=== PATIENT | female | born 1980 | race Caucasian/White ===

== ENCOUNTER 2018-04-08 17:45 | Emergency (ER) | payer OTHER ==
[2018-04-08] MEDS ORDERED: ACETAMINOPHEN 325 MG TABLET (FP) PO ONE (17:55)
[2018-04-08] MEDS ORDERED: ALBUTEROL SO4 2.5/IPRATROPIUM 0.5 INH SOL 3 ML VIAL.NEB. NEB ONE ×2 (17:55→21:39)
--- NOTE | 2018-04-08 17:56 | PDOC ---
Rapid Medical Evaluation Time Seen by Provider: 04/08/18 17:51 Medical Evaluation: Allergies Allergy/AdvReac Type Severity Reaction Status Date / Time peanut [Peanut] Allergy Severe Swelling Verified 04/08/18 17:51 04/08/18 17:51 Pt. is 22 weeks with shortness of breath, cough, asthma, and cold like symptoms. Denies vaginal bleeding and cramping, but admits to back pain. Did not take tylenol today Exam: Pt in wheel chair, wheezing b/l Orders: Tylenol, duoneb, cxr, cbc, cmp Pt. will proceed to main ED for further evaluation
[2018-04-08 18:02] VITALS: BMI 29.2
[2018-04-08 18:22] LABS: BASO % 0.1 % (0-2.0); EOS % 2.5 % (0-4.5); HEMATOCRIT 33.2 % (32.4-45.2); HEMOGLOBIN 11.5 GM/dL (10.7-15.3); LYMPH % 7.8 % (8-40); MCHC 34.6 g/dl (32.0-36.0); MEAN CELL VOLUME 98.4 fl (80-96); MEAN PLT VOLUME 8.5 fl (7.5-11.1); MONO % 8.8 % (3.8-10.2); NEUT % 80.8 % (42.8-82.8); PLATELET COUNT 253 K/MM3 (134-434); RBC 3.38 M/mm3 (3.60-5.2); WHITE BLOOD COUNT 11.1 K/mm3 (4.0-10.0)
[2018-04-08 18:49] LABS: ALBUMIN 3.3 g/dl (3.4-5.0); ALK PHOS 81 U/L (45-117); ANION GAP 10 (8-16); BILIRUBIN,TOTAL 0.3 mg/dL (0.2-1.0); BLOOD UREA NITROGEN 5 mg/dL (7-18); CALCIUM 8.9 mg/dL (8.5-10.1); CHLORIDE 106 mmol/L (98-107); CO2 21 mmol/L (21-32); CREATININE 0.6 mg/dL (0.55-1.02); GLUCOSE,RANDOM 112 mg/dL (74-106); POTASSIUM 3.8 mmol/L (3.5-5.1); SGOT/AST 16 U/L (15-37); SGPT/ALT 24 U/L (12-78); SODIUM 137 mmol/L (136-145); TOT PROT 7.6 g/dl (6.4-8.2)
--- NOTE | 2018-04-08 21:00 | PDOC ---
History of Present Illness - General Chief Complaint: Shortness of Breath Stated Complaint: 22 WKS PREG ASTHMA Time Seen by Provider: 04/08/18 17:51 History Source: Patient Exam Limitations: No Limitations - History of Present Illness Initial Comments: CHIEF COMPLAINT: 37 y/o , approximately 22 week female c/o 2 days of asthma symptoms with intermittent fever. HISTORY OF PRESENT ILLNESS: The patient has a h/o asthma. She states she has been using her albuterol inhaler for the past 2 days with little relief. She has also had an intermittent fever with T max of 100.3 at home. She has not taken any tylenol for the fever. She denies productive cough, runny nose, n/v/d , abdominal cramping, vaginal bleeding or abnormal vaginal discharge. SUPPORT ASSISTANT is Dr. Cordova Vital signs on arrival are notable for pulse of 125. REVIEW OF SYSTEMS: GENERAL/CONSTITUTIONAL: +fever to 100.3 HEAD, EYES, EARS, NOSE AND THROAT: No change in vision. No ear pain or discharge. No sore throat. CARDIOVASCULAR: +SOB. +pleuritic chest pain. RESPIRATORY: +cough and wheezing. No hemoptysis. GASTROINTESTINAL: No abd pain, nausea, vomiting, diarrhea. GENITOURINARY: No dysuria, frequency, or change in urination. No vaginal bleeding or discharge. MUSCULOSKELETAL: No joint or muscle swelling or pain. No neck or back pain. SKIN: No rash or easy bruising. NEUROLOGIC: No headache, vertigo, loss of consciousness, or loss of sensation. PHYSICAL EXAM: GENERAL: The patient is awake, alert, and fully oriented, in no acute distress. She is well appearing, ambulatory, seems slightly winded when speaking full sentences. HEAD: Normal with no signs of trauma. ENT: Pupils equal, round and reactive to light, extraocular movements intact, sclera anicteric, conjunctiva clear. Neck supple. LUNGS: Faint expiratory wheezing in posterior lung rodriguez. CV: tachycardic with regular rhythm, S1/S2, no MRG. Cap refill < 2 sec. ABDOMEN: Soft, gravid abdomen, non-tender even to deep palpation, no hepatomegaly or splenomegaly, no masses. EXTREMITIES: Normal range of motion, no edema. NEUROLOGICAL: Normal speech, normal gait. CN II-XII grossly intact. SKIN: Warm, dry, normal turgor, no rashes or lesions noted. Past History - Past Medical History Allergies/Adverse Reactions: Allergies Allergy/AdvReac Type Severity Reaction Status Date / Time peanut [Peanut] Allergy Severe Swelling Verified 04/08/18 17:51 Home Medications: Ambulatory Orders Albuterol Sulfate [Proventil HFA Inhaler -] 1 - 2 inh PO PRN 03/31/18 Vitamin Tablet 1 tab PO DAILY 03/31/18 Asthma: Yes COPD: No - Surgical History Cholecystectomy: Yes - Suicide/Smoking/Psychosocial Hx Smoking Status: No Smoking History: Never smoked Have you smoked in the past 12 months: No Number of Cigarettes Smoked Daily: 0 Information on smoking cessation initiated: No Hx Alcohol Use: No Drug/Substance Use Hx: No Substance Use Type: None Hx Substance Use Treatment: No *Physical Exam - Vital Signs Last Vital Signs Temp Pulse Resp BP Pulse Ox 99.1 F 125 H 24 117/46 100 04/08/18 17:52 04/08/18 17:52 04/08/18 17:52 04/08/18 17:52 04/08/18 17:52 ED Treatment Course - LABORATORY CBC & Chemistry Diagram: 04/08/18 18:05 04/08/18 18:05 - ADDITIONAL ORDERS Additional order review: Laboratory Results 04/08/18 18:05 Sodium 137 Potassium 3.8 Chloride 106 Carbon Dioxide 21 Anion Gap 10 BUN 5 L Creatinine 0.6 Creat Clearance w eGFR > 60 Random Glucose 112 H Calcium 8.9 Total Bilirubin 0.3 D AST 16 ALT 24 Alkaline Phosphatase 81 Total Protein 7.6 Albumin 3.3 L 04/08/18 18:05 RBC 3.38 L D MCV 98.4 H MCHC 34.6 RDW 13.0 MPV 8.5 Neutrophils % 80.8 Lymphocytes % 7.8 L D Monocytes % 8.8 Eosinophils % 2.5 D Basophils % 0.1 - Medications Given in the ED: ED Medications Discontinued Medications Generic Name Dose Route Start Last Admin Trade Name Freq PRN Reason Stop Dose Admin Albuterol/Ipratropium 1 amp 04/08/18 17:55 04/08/18 17:57 Duoneb - NEB 04/08/18 17:56 1 amp ONCE ONE Administration Medical Decision Making - Medical Decision Making A/P: 37 y/o afebrile female, approximately 22 weeks with asthma symptoms and intermittent fever x 2 days. Labs, CXR, tylenol and 1 duoneb were ordered in triage. Patient has refused the CXR and tylenol. Will give 2 more duonebs. Will swab for flu. If patient's symptoms improve, will send upstairs to have baby monitored. Symptoms improved CXR - normal Will sent to L&D to be monitored. *DC/Admit/Observation/Transfer Diagnosis at time of Disposition: 23 weeks gestation of - Discharge Dispostion Disposition: HOME Condition at time of disposition: Stable - Referrals Referrals: Lakisha Cordova MD [Staff Physician] - (Keep appointment on April 17, 2018 with Tasha Grissom. Return to l/d if rupture of membranes, contractions, vaginal bleeding or decreased movement.) Angie Casper [Primary Care Provider] - - Patient Instructions - Post Discharge Activity
[2018-04-08] MEDS ORDERED: ACETAMINOPHEN 325 MG TABLET (FP) ONE (21:01)
[2018-04-08] MEDS: ALBUTEROL SO4 2.5/IPRATROPIUM 0.5 INH SOL 3 ML VIAL.NEB. NEB SCH ×2 (21:46→21:58)
[2018-04-09 02:23] VITALS: BP 98/67; PULSE 65; TEMP 97.7
== END 2018-04-09 01:32 | disposition home or self-care (01) ==
LOC: JER 17:45
PROC: 3E0F7GC Introduction of Other Therapeutic Substance into Respiratory Tract, Via Natural or Artificial Opening (ICD-10-PCS; principal; 2018-04-08)
PROC: 3E0F7GC Introduction of Other Therapeutic Substance into Respiratory Tract, Via Natural or Artificial Opening (ICD-10-PCS; 2018-04-08)
DX: O26.892 Other specified pregnancy related conditions, second trimester (principal); J45.909 Unspecified asthma, uncomplicated; Z3A.22 22 weeks gestation of pregnancy
CPT/HCPCS: 36415; 71045-TC-FY; 80053; 85025; 87804; 99282-25; J7620

== ENCOUNTER 2018-08-05 07:10 | Inpatient (IN) | payer BC ==
[2018-08-05 08:48] VITALS: BMI 28.8
[2018-08-05] MEDS ORDERED: DINOPROSTONE 10 MG VAGINAL SUPPOSITORY VG ONE (09:00)
[2018-08-05 09:45] LABS: BASO % 0.4 % (0-2.0); EOS % 0.8 % (0-4.5); HEMATOCRIT 36.6 % (32.4-45.2); HEMOGLOBIN 12.6 GM/dL (10.7-15.3); LYMPH % 15.2 % (8-40); MCH 34.5 pg (25.7-33.7); MCHC 34.4 g/dl (32.0-36.0); MEAN CELL VOLUME 100.1 fl (80-96); MEAN PLT VOLUME 9.9 fl (7.5-11.1); MONO % 9.6 % (3.8-10.2); PLATELET COUNT 185 K/MM3 (134-434); RBC 3.66 M/mm3 (3.60-5.2); RDW 13.6 % (11.6-15.6); WHITE BLOOD COUNT 6.2 K/mm3 (4.0-10.0)
[2018-08-05 09:57] LABS: INR 0.93 (0.83-1.09); PROTHROMBIN TIME (PATIENT) 10.5 SEC (9.7-13.0)
[2018-08-05 10:00] LABS: ACTIVATED PTT 27.3 SECONDS (25.2-36.5)
[2018-08-05 10:20] LABS: ANION GAP 11 MMOL/L (8-16); BLOOD UREA NITROGEN 12 mg/dL (7-18); CALCIUM 9.4 mg/dL (8.5-10.1); CHLORIDE 106 mmol/L (98-107); CO2 23 mmol/L (21-32); CREATININE 0.6 mg/dL (0.55-1.3); GLUCOSE,RANDOM 79 mg/dL (74-106); POTASSIUM 3.9 mmol/L (3.5-5.1); SODIUM 140 mmol/L (136-145)
[2018-08-05] MEDS ORDERED: TUBERCULIN PPD 5 TU/0.1ML SYRINGE (IN PATIENT USE ONLY) ID ONE (12:00)
--- NOTE | 2018-08-05 16:29 | HP ---
Past Medical History - Admission History of Present Illness: 37 y/o P0 with SIUP at 39.6 weeks here for labor induction due to GDMA1. otherwise uncomplicated. Feeling vaginal pressure, no VB/LOF/Ctx. + FM. H/O Asthma. GBS negative. History Source: Patient, Medical Record Limitations to Obtaining History: No Limitations - Past Medical History Pulmonary: Yes: Asthma Gastrointestinal: Yes: Other (Chronic Abd pain). No: GERD Hepatobiliary: Yes: Other (Elevated LFTs) ...: 1 ...Para: 0 ...Term: 0 ...: 0 ...Spon : 0 ...Induced : 0 ...Multiple Gestation: 0 ...LMP: 10/25/17 ... Weeks Gestation by Dates: 40.4 ...EDC by Dates: 08/01/18 ...EDC by Sono: 08/06/18 Infectious Disease: No: HIV, MRSA, STD's Psych: No: Anxiety, Bipolar, Depression - Past Surgical History Past Surgical History: Yes: Cholecystectomy Hx Myomectomy: No Hx Transabdominal Cerclage: No - Smoking History Smoking history: Never smoked Have you smoked in the past 12 months: No Aproximately how many cigarettes per day: 0 - Alcohol/Substance Use Hx Alcohol Use: No - Social History Usual Living Arrangement: Yes: With Spouse ADL: Independent History of Recent Travel: No Home Medications - Allergies Allergies/Adverse Reactions: Allergies Allergy/AdvReac Type Severity Reaction Status Date / Time peanut [Peanut] Allergy Severe Swelling Verified 08/05/18 08:25 No Known Drug Allergies Allergy Verified 08/05/18 08:25 nut - unspecified Allergy Swelling Verified 08/05/18 08:25 - Home Medications Home Medications: Ambulatory Orders Vitamin Tablet 1 tab PO DAILY 03/31/18 Albuterol Sulfate [Proair Hfa] 1 - 2 puff PO PRN 08/05/18 Review of Systems - Review of Systems Constitutional: reports: No Symptoms Eyes: reports: No Symptoms HENT: reports: No Symptoms Neck: reports: No Symptoms Cardiovascular: reports: No Symptoms Respiratory: reports: No Symptoms Gastrointestinal: reports: No Symptoms Genitourinary: reports: No Symptoms Breasts: reports: No Symptoms Reported Musculoskeletal: reports: No Symptoms Integumentary: reports: No Symptoms Neurological: reports: No Symptoms Endocrine: reports: No Symptoms Hematology/Lymphatic: reports: No Symptoms Psychiatric: reports: No Symptoms Physical Exam - Maternity Vital Signs: Vital Signs Temperature 98.4 F 08/05/18 15:00 Pulse Rate 60 08/05/18 16:00 Respiratory Rate 20 08/05/18 16:00 Blood Pressure 98/58 L 08/05/18 16:00 O2 Sat by Pulse Oximetry (%) Constitutional: Yes: Well Nourished, No Distress, Calm Eyes: Yes: Conjunctiva Clear, EOM Intact HENT: Yes: Atraumatic, Normocephalic Neck: Yes: Supple, Trachea Midline Lungs: Clear to auscultation - Abdominal Exam/OB Number of Fetuses: Single Presentation: Vertex Contractions: No Category: I - Vaginal Exam/OB Vaginal Bleediing: No Dilatation (cm): 1 Effacement (%): 70 Amniotic Membrane Status: Intact Presentation: Vertex/Position Station: -2 - Physical Exam Psychiatric: Yes: Alert, Oriented - Labs Lab Results: CBC, BMP 08/05/18 09:15 08/05/18 09:15 Problem List - Problems (1) Term Code(s): Z34.80 - ENCOUNTER FOR SUPRVSN OF NORMAL , UNSP TRIMESTER (2) Gestational diabetes mellitus (GDM) affecting first Code(s): O24.419 - GESTATIONAL DIABETES MELLITUS IN , UNSP CONTROL Assessment/Plan 37 y/o with SIUP at 40.4 weeks by dates, 39.6 weeks by sonogram here for IOL 2/ 2 GDMA1 AFVSS FHTS cat 1 cervidil placed at 9 am, for re evaluation at 9 pm or sooner if indicated GBS negative
[2018-08-05] MEDS ORDERED: BUTORPHANOL TARTRATE 1 MG/ML VIAL IVPB ONE (16:45)
[2018-08-05] MEDS ORDERED: PROMETHAZINE HCL 25 MG/1 ML VIAL IVPUSH ONE (16:45)
[2018-08-05] MEDS ORDERED: ELECTROLYTE-148 SOLN 500 ML IV ONE ×2 (21:30→22:30)
[2018-08-05] MEDS: ELECTROLYTE-148 SOLN 1,000 ML IV SCH (22:20)
--- NOTE | 2018-08-05 23:42 | PN ---
Ante-Partal Exam - Subjective Subjective: Pt with tachycarida will DC cervidil Vital Signs: Vital Signs Temperature 98.2 F 08/05/18 23:00 Pulse Rate 73 08/05/18 23:00 Respiratory Rate 20 08/05/18 23:00 Blood Pressure 108/63 08/05/18 23:00 O2 Sat by Pulse Oximetry (%) Bleeding: No Headache: No Visual changes: No Right upper quadrant pain: No - Contractions Regularity: Regular Intensity: Mild Monitor Mode: External - Exam during Labor Variability: Moderate Category: II Monitor Accelerations: Present Monitor Decelerations: Variable Exam: Vaginal Dilatation (cm): 1 Effacement (%): 90 Amniotic Membrane Status: Intact (cervidil removed) Presentation: Vertex - Assessment/Plan Assessment/Plan: tachycardia GDM A1 39 week Cat 2 Plan DC cerivdil IV hydration start pitocin if tracing improves
[2018-08-05] MEDS ORDERED: OXYTOCIN 30 UNITS in 0.9% NS 30 UNIT/500 ML INFUS.BAG IVPB SCH (23:45)
--- NOTE | 2018-08-05 23:45 | PN ---
Ante-Partal Exam - Subjective Subjective: Pt doing well cervidil removed will start pitocin EFM 145-150 Cat 1 Contraction irregular Vital Signs: Vital Signs Temperature 98.2 F 08/05/18 23:00 Pulse Rate 73 08/05/18 23:00 Respiratory Rate 20 08/05/18 23:00 Blood Pressure 108/63 08/05/18 23:00 O2 Sat by Pulse Oximetry (%) - Contractions Contractions: Yes Monitor Mode: External - Exam during Labor Variability: Moderate Category: I Monitor Accelerations: Present Monitor Decelerations: None - Assessment/Plan Assessment/Plan: GDMA1 Cat 1 39 week Plan Pitocin aug
--- NOTE | 2018-08-05 23:47 | LDN ---
Oxytocin Pre-Use Checklist Date and Time completed: 08/05/18 5143 Physician order on chart: Yes Current history and physical on chart: Yes Indication for induction is documented: Yes record on chart: Yes Pelvis is documented by physician to be clinically adequate: Yes Estimated weight within past week (clinical or sono): Less than 4250 grams in a diabetic woman Gestational age is documented: Yes Consent signed: Yes Physician with privileges: is aware of the induction, is readily available, is documented in the medical record Status of the cervix is assessed and documented: Yes Presentation is assessed and documented: Yes Assessment completed and includes: At least 2 accelerations (15bpm x 15sec ) in 30 minutes are present, Adequate variability, No late decelerations in past 30 minutes, No more than 2 Variable decelerations exceeding 60 seconds
[2018-08-06] MEDS: ELECTROLYTE-148 SOLN 1,000 ML IV SCH (06:00)
--- NOTE | 2018-08-06 09:33 | PN ---
Ante-Partal Exam - Subjective Subjective: Pt doing well contractions Q4-5 Vital Signs: Vital Signs Temperature 98.1 F 08/06/18 08:00 Pulse Rate 90 08/06/18 09:00 Respiratory Rate 20 08/06/18 09:00 Blood Pressure 98/51 L 08/06/18 09:00 O2 Sat by Pulse Oximetry (%) Bleeding: No Bleeding Description: Moderate Headache: No Visual changes: No Right upper quadrant pain: No - Contractions Contractions: Yes Regularity: Regular Intensity: Mild/Mod Monitor Mode: External - Exam during Labor Heart Rate: 145 Variability: Moderate Category: I Monitor Accelerations: Present Monitor Decelerations: None Exam: Vaginal Dilatation (cm): 1 Effacement (%): 90 Amniotic Membrane Status: Intact Presentation: Vertex Station: 0 - Intrapartum Hemorrhage Risk Risk Score: 0 Risk Level: Low Risk - Assessment/Plan Assessment/Plan: GDM A1 iup at 40 week Plan continue pitocin
--- NOTE | 2018-08-06 10:07 | PN ---
Ante-Partal Exam - Subjective Vital Signs: Vital Signs Temperature 98.1 F 08/06/18 08:00 Pulse Rate 90 08/06/18 09:00 Respiratory Rate 20 08/06/18 09:00 Blood Pressure 98/51 L 08/06/18 09:00 O2 Sat by Pulse Oximetry (%) Bleeding: No Headache: No Visual changes: No Right upper quadrant pain: No Pain (scale 1-10): 2 - Contractions Contractions: Yes Regularity: Regular Intensity: Mild/Mod Monitor Mode: External - Exam during Labor Heart Rate: 140 Variability: Moderate Category: I Monitor Accelerations: Present Monitor Decelerations: None Exam: Vaginal Dilatation (cm): 1 Effacement (%): 90 Amniotic Membrane Status: Ruptured (AROM for clear fluid at this exam) Nitrazine Test: Positive Presentation: Vertex Station: -1 - Intrapartum Hemorrhage Risk Medium Risk Factors: None High Risk Factors: None Risk Score: 0 Risk Level: Low Risk - Assessment/Plan Assessment/Plan: 37 y/o with SIUP at 40.5 weeks by dates, a1GDM here for IOL FHTS cat 1 on pitocin AROM for clear fluid analgesia prn GBS negative continue current care
[2018-08-06] MEDS ORDERED: PROMETHAZINE HCL 25 MG/1 ML VIAL IVPB ONE ×2 (10:10→14:15)
[2018-08-06] MEDS ORDERED: BUTORPHANOL TARTRATE 1 MG/ML VIAL IVPB ONE ×2 (10:10→14:15)
[2018-08-06] MEDS ORDERED: PROMETHAZINE HCL 25 MG/1 ML VIAL ONE (13:32)
[2018-08-06] MEDS ORDERED: BUTORPHANOL TARTRATE 1 MG/ML VIAL ONE ×2 (13:32)
[2018-08-06] MEDS ORDERED: OXYTOCIN 20 UNITS in 0.9% NS 20 UNIT/1,000 ML INFUS.BAG IV ONE (15:51)
--- NOTE | 2018-08-06 16:13 | PN ---
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
[2018-08-06] MEDS ORDERED: WITCH HAZEL 50% (TUCKS) 40 PAD/JAR PAD TP PRN (16:19)
[2018-08-06] MEDS ORDERED: METHYLERGONOVINE MALEATE 0.2 MG/1 ML AMP IM PRN (16:19)
[2018-08-06] MEDS ORDERED: BISACODYL 10 MG SUPP.RECT RC PRN (16:19)
[2018-08-06] MEDS ORDERED: ACETAMINOPHEN 325 MG TABLET (FP) PO PRN (16:19)
[2018-08-06] MEDS ORDERED: IBUPROFEN 600 MG TABLET (FP) PO PRN (16:19)
[2018-08-06] MEDS ORDERED: BENZOCAINE 20% 57 GM BOTTLE TP PRN (16:19)
[2018-08-06] MEDS: BENZOCAINE 28 GM HEMORRHOIDAL OINTMENT TP PRN (21:17)
[2018-08-07] MEDS: OXYTOCIN 20 UNITS in 0.9% NS 20 UNIT/1,000 ML INFUS.BAG IV SCH ×2 (01:18→20:37)
[2018-08-07 07:16] LABS: BASO % 0.2 % (0-2.0); EOS % 0.1 % (0-4.5); HEMOGLOBIN 10.2 GM/dL (10.7-15.3); LYMPH % 17.4 % (8-40); MCH 34.5 pg (25.7-33.7); MEAN CELL VOLUME 98.6 fl (80-96); MEAN PLT VOLUME 9.7 fl (7.5-11.1); MONO % 10.2 % (3.8-10.2); NEUT % 72.1 % (42.8-82.8); PLATELET COUNT 160 K/MM3 (134-434); RBC 2.94 M/mm3 (3.60-5.2); RDW 13.9 % (11.6-15.6); WHITE BLOOD COUNT 9.9 K/mm3 (4.0-10.0)
[2018-08-07] MEDS: PRENATAL VITAMINS W/ FOLIC ACID TABLET (FP) PO SCH (09:33)
--- NOTE | 2018-08-07 15:26 | PN ---
Post Progress Note - Subjective Subjective: Pt doing well. Denies pain. Tolerating diet. Ambulating, voiding, passing flatus. NO complaints. Post Day: 1 Type of Delivery: Vital Signs: Vital Signs Temperature 99.0 F 08/07/18 13:44 Pulse Rate 86 08/07/18 13:44 Respiratory Rate 20 08/07/18 13:44 Blood Pressure 97/59 L 08/07/18 13:44 O2 Sat by Pulse Oximetry (%) Uterus: Yes: Fundus Firm Abdomen/GI: Yes: Abdomen soft, Passing flatus, Tolerating PO. No: Tender Lochia: Yes: Rubra Lochia, amount: Small Extremities: Yes: Calves non-tender. No: Calf tenderness, Edema Perineum: Yes: Intact Activity: Ambulating - Labs Labs: CBC WBC 9.9 K/mm3 (4.0-10.0) 08/07/18 06:00 RBC 2.94 M/mm3 (3.60-5.2) L 08/07/18 06:00 Hgb 10.2 GM/dL (10.7-15.3) L 08/07/18 06:00 Hct 29.0 % (32.4-45.2) L D 08/07/18 06:00 MCV 98.6 fl (80-96) H 08/07/18 06:00 MCH 34.5 pg (25.7-33.7) H 08/07/18 06:00 MCHC 35.0 g/dl (32.0-36.0) 08/07/18 06:00 RDW 13.9 % (11.6-15.6) 08/07/18 06:00 Plt Count 160 K/MM3 (134-434) 08/07/18 06:00 MPV 9.7 fl (7.5-11.1) 08/07/18 06:00 Absolute Neuts (auto) 7.1 K/mm3 (1.5-8.0) 08/07/18 06:00 Neutrophils % 72.1 % (42.8-82.8) 08/07/18 06:00 Lymphocytes % 17.4 % (8-40) 08/07/18 06:00 Monocytes % 10.2 % (3.8-10.2) 08/07/18 06:00 Eosinophils % 0.1 % (0-4.5) D 08/07/18 06:00 Basophils % 0.2 % (0-2.0) 08/07/18 06:00 Nucleated RBC % 0 % (0-0) 08/07/18 06:00 Problem List - Problems (1) Term Code(s): Z34.80 - ENCOUNTER FOR SUPRVSN OF NORMAL , UNSP TRIMESTER (2) Gestational diabetes mellitus (GDM) affecting first Code(s): O24.419 - GESTATIONAL DIABETES MELLITUS IN , UNSP CONTROL (3) Normal vaginal delivery Code(s): O80 - ENCOUNTER FOR FULL-TERM UNCOMPLICATED DELIVERY Assessment/Plan 37 y/o PPD#1 s/p normal AFVSS Regular diet PO pain meds routine care
--- NOTE | 2018-08-07 16:05 | DS ---
Physical Exam-E BUSINESS CONSULTANT Vital Signs: Vital Signs Temperature 99.0 F 08/07/18 13:44 Pulse Rate 86 08/07/18 13:44 Respiratory Rate 20 08/07/18 13:44 Blood Pressure 97/59 L 08/07/18 13:44 O2 Sat by Pulse Oximetry (%) Constitutional: Yes: Well Nourished, No Distress, Calm Eyes: Yes: Conjunctiva Clear, EOM Intact HENT: Yes: Atraumatic, Normocephalic Neck: Yes: Supple Cardiovascular: Yes: WNL Respiratory: Yes: Regular Gastrointestinal: Yes: WNL ....Post : Yes: Uterus firm, Uterus non-tender Neurological: Yes: Alert, Oriented Psychiatric: Yes: Alert, Oriented Labs: CBC, BMP 08/07/18 06:00 08/05/18 09:15 Delivery - Delivery Vaginal Delivery: No Problems Type of Anesthesia: Local Episiotomy/Laceration: None EBL (cc): 250 Delivery, Single - Stages of Labor Date 1st Stage Initiatied: 08/06/18 Time 1st Stage Initiated: 08:00 Date 2nd Stage Initiated: 08/06/18 Time 2nd Stage Initiated: 15:45 Date of Delivery: 08/06/18 Time of Delivery: 16:00 Time Placenta Delivered: 16:02 Placenta: Yes: Spontaneous - Condition of Infant Shift Supervisor/Public Stenographer Present: No Infant Gender: Female Weight: 5 lb 13 oz Position: Right, OA Total Hours ROM (Hrs/Mins): 6H10M - 1 Minute Total Score: 9 5 Minutes Total Score: 9 - Feeding Plan Initial Plan: Exclusive throughout hospitalization Discharge Summary Reason For Visit: CERVICAL INDUCTION Current Active Problems Gestational diabetes mellitus (GDM) affecting first (Acute) Normal vaginal delivery (Acute) Term (Acute) Procedures: Principal: Normal vaginal delivery Hospital Course: Pt admitted on 08/05 for labor induction due to A1 Gestational Diabetes. SHe had a cervicil placed morning of 08/05 and pitocin was started that evening. SHe then had her membranes artificially ruptured the morning of 08/06 and approximately 6 hours later underwent a normal vaginal delivery. She had an unremarkable post course and was discharged home on post day 2. Condition: Good - Instructions Diet, Activity, Other Instructions: Physical activity Resume your normal everyday activity as tolerated no heavy lifting or exercise until seen by your surgeon. You may walk unlimited benny of and climb stairs. You may resume driving the car when you feel safe and comfortable behind the wheel. No sexual activity as instructed. Wound care If you have stitches they will dissolve/come out on their own. Please do not attempt to remove them. YOu may shower daily, do not soak in tubs/baths/pools until cleared by your doctor. Diet There are no dietary restrictions. Eat healthy, high-fiber foods. Drink 6 to 8 glasses of liquid each day. This will assist in keeping your bowels are regular. Pain management You may take Tylenol or acetaminophen or Ibuprofen (for example, Motrin, Advil etc.) from my pain prescription medication is ordered should be taken as prescribed for moderate to severe pain. Call MD for any of the following: Severe pain not relieved by medication Fever of 101 or higher Excessive bleeding or drainage on dressing Inability to urinate Disposition: HOME - Home Medications Comprehensive Discharge Medication List: Ambulatory Orders Vitamin Tablet 1 tab PO DAILY 03/31/18 Albuterol Sulfate [Proair Hfa] 1 - 2 puff PO PRN 08/05/18 Ibuprofen [Motrin -] 600 mg PO QID PRN #28 tablet 08/07/18
[2018-08-07] MEDS: ELECTROLYTE-148 SOLN 1,000 ML IV SCH (20:38)
[2018-08-07] MEDS: BENZOCAINE 28 GM HEMORRHOIDAL OINTMENT TP PRN (20:48)
[2018-08-07] MEDS ORDERED: SENNOSIDES/DOCUSATE COMBO (SENNA PLUS) TABLET (UD) PO PRN (22:00)
[2018-08-08 08:46] VITALS: BP 104/60; PULSE 69; TEMP 98.4
[2018-08-08] MEDS: PRENATAL VITAMINS W/ FOLIC ACID TABLET (FP) PO SCH (09:07)
== END 2018-08-08 12:20 | disposition home or self-care (01) | DRG 775 ==
LOC: JLDR 07:10 → J3W 08-06 17:25
PROVIDERS: ADMIT Obstetrics & Gynecology; ATTEND Obstetrics & Gynecology
PROC: 3E0P7VZ Introduction of Hormone into Female Reproductive, Via Natural or Artificial Opening (ICD-10-PCS; 2018-08-05)
PROC: 10E0XZZ Delivery of Products of Conception, External Approach (ICD-10-PCS; principal; 2018-08-06)
DX: O24.424 Gestational diabetes mellitus in childbirth, insulin controlled (principal); O48.0 Post-term pregnancy; O76 Abnormality in fetal heart rate and rhythm complicating labor and delivery; O26.893 Other specified pregnancy related conditions, third trimester; J45.909 Unspecified asthma, uncomplicated; Z3A.39 39 weeks gestation of pregnancy; Z37.0 Single live birth
CPT/HCPCS: 36415; 59409; 80048; 85025; 85610; 85730; 86593; 86850; 86900; 86901

== ENCOUNTER 2018-10-08 04:58 | Day surgery (SDC) | payer BC ==
[2018-10-07 13:26] VITALS: BMI 26.4
[2018-10-08] MEDS ORDERED: ACETAMINOPHEN 325 MG TABLET (FP) PO PRN (10:24)
[2018-10-08] MEDS ORDERED: IBUPROFEN 800 MG/8 ML IJ IVPB PRN (10:24)
--- NOTE | 2018-10-08 10:25 | HP ---
History & Physical Update - History History: No Change - Physical Physical: No Change - Assessment Assessment: No Change - Plan Plan: No Change (Agree with H&P from 10/06/18 - no change- for laparoscopic bilateral tubal ligation)
[2018-10-08] MEDS ORDERED: LACTATED RINGERS SOLUTION 1,000 ML IV SCH ×2 (10:30→16:00)
[2018-10-08] MEDS ORDERED: BUPIVACAINE HCL/PF 0.5% (5MG/ML) 10 ML VIAL ONE (12:20)
[2018-10-08] MEDS ORDERED: ROCURONIUM BROMIDE 50 MG/5 ML VIAL ONE (13:12)
[2018-10-08] MEDS ORDERED: PROPOFOL 20 ML ONE (13:12)
[2018-10-08] MEDS ORDERED: MIDAZOLAM HCL 2 MG/2 ML SINGLE DOSE VIAL ONE (13:12)
[2018-10-08] MEDS ORDERED: NEOSTIGMINE METHYLSULFATE 0.5 MG/ML - 10 ML MDV ONE (13:44)
[2018-10-08] MEDS ORDERED: BUPIVACAINE HCL/PF 0.5% (5MG/ML) 10 ML VIAL IJ ONE (13:45)
--- NOTE | 2018-10-08 14:19 | SURG ---
Surgery Store Warehouse Associate Note Store Warehouse Associate: Ab Fraser PA-C Date of Service: 10/08/18 Diagnosis: Voluntary sterilization Procedure: Laproscopic bilateral salpingectomy I was present for the entirety of the operative procedure. For further detail, please refer to operative report.
--- NOTE | 2018-10-08 14:21 | OP ---
<Ab Fraser - Last Filed: 10/08/18 14:20> Operative Note - Note: Operative Date: 10/08/18 Pre-Operative Diagnosis: Voluntary sterilization Operation: Laproscopic bilateral salpingectomy Post-Operative Diagnosis: Same as Pre-op Surgeon: Halima An Pathological Technician: Ab Fraser Anesthesiologist/TOPOGRAPHICAL SURVEYOR: Giovanna Rodriguez MD Anesthesia: General Estimated Blood Loss (mls): 10 Fluid Volume Replaced (mls): 800 Operative Report Dictated: Yes <Halima An - Last Filed: 10/15/18 12:23> Operative Note - Note: Findings: normal b/l tubes and ovaries
[2018-10-08] MEDS ORDERED: ONDANSETRON 4 MG/2 ML VIAL IVPUSH PRN (15:52)
[2018-10-08] MEDS ORDERED: ACETAMINOPHEN 325 MG TABLET (FP) ONE (16:36)
[2018-10-08 18:36] VITALS: BP 118/66; PULSE 61; TEMP 97.9
--- NOTE | 2018-10-10 18:41 | PATH ---
Surgical Pathology Report Patient Name: KASI GUTIÉRREZ [facility]. Rec. #: [id number] /Age/Gender: 1980 (Age: 37) / F Account: [id number] Location: [facility] SURGICAL Taken: 10/08/2018 Received: 10/09/2018 Reported: 10/10/2018 Physicians: Halima An M.D. Specimen(s) Received A: LEFT FALLOPIAN TUBE B: RIGHT FALLOPIAN TUBE Clinical History Voluntary sterilization Final Diagnosis A. FALLOPIAN TUBE, LEFT, LAPAROSCOPIC SALPINGECTOMY: FALLOPIAN TUBE WITH VASCULAR CONGESTION, EDEMA AND ENDOSALPINGOSIS (INCLUDING FIMBRIATED END AND FULL LUMINAL PORTION. B. FALLOPIAN TUBE, RIGHT, LAPAROSCOPIC SALPINGECTOMY: FALLOPIAN TUBE WITH VASCULAR CONGESTION (INCLUDING FIMBRIATED END AND FULL LUMINAL PORTION. Electronically Signed Jada Dennis M.D. Gross Description A. Received in formalin labeled "left fallopian tube," is a 3.5 cm in length fimbriated fallopian tube. The outer surface is jimenez maher and smooth. Sectioning reveals an unremarkable lumen. Food Sales Clerk sections are submitted in 2 cassettes as follows: 1-fimbria; 2-cross sections of fallopian tube. B. Received in formalin labeled "right fallopian tube," is a 5 cm in length fimbriated fallopian tube. The outer surface is jimenez maher and smooth. Sectioning reveals an unremarkable lumen. Food Sales Clerk sections are submitted in 2 cassettes as follows: 1-fimbria; 2-cross sections of fallopian tube. /10/09/2018 saudi10/09/2018
--- NOTE | 2018-10-16 07:17 | OP ---
DATE OF OPERATION: 10/08/2018 PREOPERATIVE DIAGNOSIS: Desire for permanent sterilization. POSTOPERATIVE DIAGNOSIS: Desire for permanent sterilization. PROCEDURE: Laparoscopic bilateral salpingectomy. SURGEON: Halima An MD ANESTHESIA: General administered by Giovanna Rodriguez MD. FINDINGS: Included normal intrapelvic anatomy, normal bilateral tubes and ovaries. SPECIMENS REMOVED: Bilateral fallopian tubes. PARK MANAGER: Ab Fraser PA-C ESTIMATED BLOOD LOSS: 10 mL. COMPLICATIONS: None. COUNTS: Sponge, needle, and instrument counts were correct. DISPOSITION: Stable to PACU. BRIEF HISTORY AND PROCEDURE: Patient is a 37-year-old who had been seen in the office and expressed request for a voluntary sterilization procedure. The patient was given risks and benefits for a laparoscopic bilateral salpingectomy, and other alternative options. She elected to undergo the said procedure. Consents were signed in the office. She was then admitted to [facility] on October 08, 2018. Consents were reconfirmed. The patient was then taken back to the operating room, where she was given general anesthesia and placed in the dorsal lithotomy position. A Chance catheter was placed under sterile conditions and a hard time-out was performed. First, a 5-mm skin incision was created in the base of the umbilicus, and a Veress needle was placed intraabdominally, and the abdomen was insufflated with CO2 gas. Then, using the optical trocar, the 5-mm trocar was placed under direct visualization into the abdomen. Next two 5-mm lower quadrant trocars were placed under direct visualization, one on the left and one on the right. At this point, bilateral fallopian tubes were identified and noted to be within normal limits. The left fallopian tube was elevated and dissected off its attachment to the ovary and the uterus along the mesosalpinx. This was done with the LigaSure device. The fallopian tube was then removed through the trocar and sent to Pathology for permanent evaluation. The same was repeated with the right fallopian tube. Excellent hemostasis was noted at the surgical sites. All instruments and trocars were removed from the abdomen. Trocar sites were evaluated, and no bleeding from the trocar sites were appreciated. All trocars were removed. The Abdomen was desufflated. The skin was reapproximated using Biosyn suture and skin glue, and she was awoken from anesthesia and taken to PACU in stable condition. Sponge, needle and instrument counts were reported to be correct after the case. HALIMA AN DO /[id number] MTDD
== END 2018-10-08 17:35 | disposition home or self-care (01) ==
LOC: JASU-SURG 04:58
PROVIDERS: ATTEND Obstetrics & Gynecology
PROC: 0U574ZZ Destruction of Bilateral Fallopian Tubes, Percutaneous Endoscopic Approach (ICD-10-PCS; principal; 2018-10-08 11:30)
DX: Z30.2 Encounter for sterilization (principal)
CPT/HCPCS: 88302-TC; 94760

== ENCOUNTER 2021-04-03 18:57 | Inpatient (IN) | payer BC, OTHER ==
[2021-04-03 19:40] VITALS: BMI 25.4
[2021-04-03] MEDS ORDERED: ACETAMINOPHEN 1000 MG/100 ML VIAL (NON FORMULARY) IVPB ONE (20:03)
[2021-04-03] MEDS ORDERED: DEXAMETHASONE SOD PHOSPHATE 4 MG/1 ML VIAL IVPUSH ONE ×2 (20:03→20:39)
[2021-04-03] MEDS ORDERED: LACTATED RINGERS SOLUTION 1000 ML INFUS.BAG IV ONE (20:03)
[2021-04-03] MEDS ORDERED: ONDANSETRON 4 MG/2 ML VIAL IVPUSH ONE (20:15)
[2021-04-03] MEDS ORDERED: SODIUM CHLORIDE 0.9% 1000 ML INFUS.BAG IV ONE (20:31)
[2021-04-03] MEDS ORDERED: ACETAMINOPHEN INJECTION 100 ML IVPB ONE (20:32)
[2021-04-03 20:47] LABS: BASO % 0.1 % (0-2.0); EOS % 0.1 % (0-4.5); HEMATOCRIT 36.2 % (32.4-45.2); HEMOGLOBIN 12.6 GM/dL (10.7-15.3); LYMPH % 21.7 % (8-40); MCH 33.1 pg (25.7-33.7); MCHC 34.8 g/dl (32.0-36.0); MEAN CELL VOLUME 95.4 fl (80-96); MEAN PLT VOLUME 8.9 fl (7.5-11.1); MONO % 8.4 % (3.8-10.2); NEUT % 69.7 % (42.8-82.8); PLATELET COUNT 149 K/MM3 (134-434); RDW 12.9 % (11.6-15.6); WHITE BLOOD COUNT 2.6 K/mm3 (4.0-10.0)
[2021-04-03 20:49] LABS: VENOUS BASE EXCESS 0.8 mmol/L (-2-2); VENOUS O2 SATURATION 69.9 % (70-80); VENOUS PCO2 37.3 mmHg (38-52); VENOUS PH 7.442 (7.310-7.410)
[2021-04-03 20:55] LABS: INR 1.09 (0.83-1.09); PROTHROMBIN TIME (PATIENT) 13.4 SEC (9.7-13.0)
[2021-04-03 20:58] LABS: ACTIVATED PTT 31.7 SECONDS (25.2-36.5)
[2021-04-03] MEDS ORDERED: DEXAMETHASONE SOD PHOSPHATE 4 MG/1 ML VIAL ONE (20:58)
[2021-04-03] MEDS ORDERED: ONDANSETRON 4 MG/2 ML VIAL ONE (20:58)
[2021-04-03 21:07] LABS: EPI CELLS >36 /uL (0-25.1); HYALINE CASTS 7 /uL (0-3.1); PH,URINE 7.5 (5.0-8.0); URINE APPEARANCE CLOUDY; URINE BACTERIA 4049 /uL (0-1359); URINE BILIRUBIN NEGATIVE (NEGATIVE); URINE COLOR YELLOW; URINE GLUCOSE (UA) NEGATIVE (NEGATIVE); URINE KETONE TRACE (NEGATIVE); URINE LEUK ESTERASE 2+ (NEGATIVE); URINE NITRITE NEGATIVE (NEGATIVE); URINE PROTEIN 2+ (NEGATIVE); URINE WBC 254 /uL (0-25.8)
[2021-04-03 21:11] LABS: CHLORIDE 103 mmol/L (98-107); SODIUM 137 mmol/L (136-145)
[2021-04-03 21:15] LABS: ALBUMIN 3.9 g/dl (3.4-5.0); ANION GAP 8 MMOL/L (8-16); BLOOD UREA NITROGEN 9.7 mg/dL (7-18); CALCIUM 8.1 mg/dL (8.5-10.1); CO2 26 mmol/L (21-32); GLUCOSE,RANDOM 92 mg/dL (74-106)
[2021-04-03 21:18] LABS: CREATININE 0.9 mg/dL (0.55-1.3); SGOT/AST 92 U/L (15-37); SGPT/ALT 109 U/L (13-61)
[2021-04-03 21:19] LABS: BILIRUBIN,DIRECT 0.2 mg/dL (0.0-0.2); LDH 329 U/L (84-246)
[2021-04-03 21:20] LABS: BILIRUBIN,TOTAL 0.4 mg/dL (0.2-1); TOT PROT 7.7 g/dl (6.4-8.2)
[2021-04-03 21:21] LABS: ALK PHOS 102 U/L (45-117)
[2021-04-03 21:37] LABS: URINE RBC 85.8 /uL (0-23.9)
[2021-04-03] MEDS ORDERED: CEFTRIAXONE 1,000 MG in DEXTROSE 5%-WATER - 50 ML IVPB ONE (21:45)
[2021-04-03] MEDS ORDERED: CEFTRIAXONE 1 GM/50 ML BAG ONE (22:04)
[2021-04-04] MEDS ORDERED: SODIUM CHLORIDE 500 ML IV STA (05:06)
[2021-04-04 06:23] LABS: HEMATOCRIT 34.7 % (32.4-45.2); HEMOGLOBIN 11.8 GM/dL (10.7-15.3); MCHC 34.1 g/dl (32.0-36.0); MEAN CELL VOLUME 96.5 fl (80-96); MEAN PLT VOLUME 9.1 fl (7.5-11.1); PLATELET COUNT 148 K/MM3 (134-434); RBC 3.59 M/mm3 (3.60-5.2); RDW 12.9 % (11.6-15.6)
[2021-04-04 06:42] LABS: CALCIUM 7.6 mg/dL (8.5-10.1)
[2021-04-04 06:43] LABS: ALBUMIN 3.3 g/dl (3.4-5.0); BLOOD UREA NITROGEN 11.4 mg/dL (7-18)
[2021-04-04 06:44] LABS: MAGNESIUM 2.1 mg/dL (1.8-2.4); WHITE BLOOD COUNT 1.7 K/mm3 (4.0-10.0)
[2021-04-04 06:46] LABS: CREATININE 0.7 mg/dL (0.55-1.3); PHOSPHOROUS 3.4 mg/dL (2.5-4.9)
[2021-04-04 06:47] LABS: BILIRUBIN,TOTAL 0.3 mg/dL (0.2-1)
[2021-04-04 06:48] LABS: CHOLESTEROL 196 mg/dL (50-200); TRIGLYCERIDES 98 mg/dL (0-150)
[2021-04-04 06:49] LABS: LDL CHOLESTEROL (ONLY SJRH) 124 mg/dL (5-100)
[2021-04-04 06:50] LABS: HDL CHOLESTEROL 47 mg/dL (40-60); LDH 301 U/L (84-246)
[2021-04-04] MEDS ORDERED: ASCORBIC ACID 500 MG TABLET (FP) ONE (08:06)
[2021-04-04] MEDS ORDERED: DEXAMETHASONE SOD PHOSPHATE 10 MG/1 ML VIAL ONE (08:07)
[2021-04-04] MEDS ORDERED: ZINC SULFATE 220 MG CAPSULE (FP) ONE (08:07)
[2021-04-04] MEDS ORDERED: FAMOTIDINE 20 MG TABLET ONE (08:07)
[2021-04-04] MEDS ORDERED: ENOXAPARIN NA (PORCINE) 40 MG/0.4 ML DISP.SYRIN SQ ONE (08:08)
[2021-04-04] MEDS ORDERED: CEFTRIAXONE 1 GM/50 ML BAG ONE (08:08)
[2021-04-04] MEDS ORDERED: CHOLECALCIFEROL (VIT D3) 1,000 UNIT (25 MCG) TABLET ONE (08:08)
[2021-04-04] MEDS: ZINC SULFATE 220 MG CAPSULE (FP) PO SCH ×2 (09:30→21:49)
[2021-04-04] MEDS: CHOLECALCIFEROL (VIT D3) 1,000 UNIT (25 MCG) TABLET PO SCH (09:30)
[2021-04-04] MEDS: CEFTRIAXONE 1 GM in DEXTROSE 5%-WATER - 50 ML IVPB SCH (09:30)
[2021-04-04] MEDS: ASCORBIC ACID 500 MG TABLET (FP) PO SCH (09:30)
[2021-04-04] MEDS: ENOXAPARIN NA (PORCINE) 40 MG/0.4 ML DISP.SYRIN SQ SCH (09:30)
[2021-04-04] MEDS: FAMOTIDINE 20 MG TABLET PO SCH (09:30)
[2021-04-04] MEDS ORDERED: DEXAMETHASONE SOD PHOSPHATE 10 MG/1 ML VIAL IVPUSH SCH (10:00)
[2021-04-04] MEDS ORDERED: ALBUTEROL SO4 HFA INHALER IH PRN (10:04)
[2021-04-04] MEDS ORDERED: FLUTICASONE/SALMETEROL 100 MCG/50 MCG DISKUS IH SCH (10:15)
[2021-04-04] MEDS ORDERED: ALBUTEROL SO4 HFA INHALER IH ONE (10:18)
[2021-04-04] MEDS: BUDESONIDE/FORMETEROL FUMARATE 80/4.5 mcg INHALER IH SCH ×2 (11:00→21:49)
[2021-04-04] MEDS ORDERED: methylPREDNISolone NA SUCC 125 MG/2 ML VIAL ONE (19:15)
[2021-04-04] MEDS: DEXAMETHASONE SOD PHOSPHATE 10 MG/1 ML VIAL IVPUSH SCH (21:49)
[2021-04-05 07:51] LABS: BASO % 0.1 % (0-2.0); HEMATOCRIT 33.1 % (32.4-45.2); HEMOGLOBIN 11.5 GM/dL (10.7-15.3); LYMPH % 8.1 % (8-40); MCHC 34.7 g/dl (32.0-36.0); MEAN CELL VOLUME 95.1 fl (80-96); MEAN PLT VOLUME 8.9 fl (7.5-11.1); MONO % 4.9 % (3.8-10.2); NEUT % 86.9 % (42.8-82.8); PLATELET COUNT 200 K/MM3 (134-434); RBC 3.48 M/mm3 (3.60-5.2); RDW 13.1 % (11.6-15.6); WHITE BLOOD COUNT 7.9 K/mm3 (4.0-10.0)
[2021-04-05 08:10] LABS: ALBUMIN 3.4 g/dl (3.4-5.0); BLOOD UREA NITROGEN 13.2 mg/dL (7-18); CALCIUM 8.4 mg/dL (8.5-10.1); MAGNESIUM 2.3 mg/dL (1.8-2.4)
[2021-04-05 08:12] LABS: CREATININE 0.7 mg/dL (0.55-1.3)
[2021-04-05 08:13] LABS: PHOSPHOROUS 2.6 mg/dL (2.5-4.9)
[2021-04-05 08:14] LABS: BILIRUBIN,TOTAL 0.4 mg/dL (0.2-1)
[2021-04-05] MEDS ORDERED: cefTRIAXone SODIUM 1 GM VIAL ONE (09:13)
[2021-04-05] MEDS ORDERED: DEXTROSE 5%-WATER - 50 ML IVPB ONE (09:14)
[2021-04-05] MEDS: ASCORBIC ACID 500 MG TABLET (FP) PO SCH (10:54)
[2021-04-05] MEDS: FAMOTIDINE 20 MG TABLET PO SCH (10:54)
[2021-04-05] MEDS: CHOLECALCIFEROL (VIT D3) 1,000 UNIT (25 MCG) TABLET PO SCH (10:54)
[2021-04-05] MEDS: CEFTRIAXONE 1 GM in DEXTROSE 5%-WATER - 50 ML IVPB SCH (10:54)
[2021-04-05] MEDS: ZINC SULFATE 220 MG CAPSULE (FP) PO SCH ×2 (10:54→21:37)
[2021-04-05] MEDS: DEXAMETHASONE SOD PHOSPHATE 10 MG/1 ML VIAL IVPUSH SCH ×2 (10:54→21:27)
[2021-04-05] MEDS: ENOXAPARIN NA (PORCINE) 40 MG/0.4 ML DISP.SYRIN SQ SCH (10:55)
[2021-04-05] MEDS: BUDESONIDE/FORMETEROL FUMARATE 80/4.5 mcg INHALER IH SCH ×2 (10:56→21:26)
[2021-04-05 15:12] LABS: MYCOPLASMA PNEUMONIAE,IG G AB 276 U/mL (0-99); MYCOPLASMA PNEUMONIAE,IGM AB <770 U/mL (0-769)
[2021-04-05] MEDS: ALBUTEROL SO4 HFA INHALER IH SCH ×2 (17:00→21:27)
[2021-04-05 17:07] LABS: HEP B CORE AB, TOT Negative (Negative)
[2021-04-06 07:22] LABS: BASO % 0.1 % (0-2.0); HEMATOCRIT 33.2 % (32.4-45.2); HEMOGLOBIN 11.3 GM/dL (10.7-15.3); LYMPH % 4.1 % (8-40); MCH 32.8 pg (25.7-33.7); MCHC 34.1 g/dl (32.0-36.0); MEAN CELL VOLUME 96.1 fl (80-96); MEAN PLT VOLUME 8.9 fl (7.5-11.1); NEUT % 91.8 % (42.8-82.8); PLATELET COUNT 237 K/MM3 (134-434); RBC 3.45 M/mm3 (3.60-5.2); RDW 13.2 % (11.6-15.6); WHITE BLOOD COUNT 13.9 K/mm3 (4.0-10.0)
[2021-04-06 07:54] LABS: BLOOD UREA NITROGEN 15.9 mg/dL (7-18)
[2021-04-06 07:55] LABS: ALBUMIN 3.5 g/dl (3.4-5.0); CALCIUM 8.4 mg/dL (8.5-10.1)
[2021-04-06 07:56] LABS: BILIRUBIN,TOTAL 0.3 mg/dL (0.2-1); MAGNESIUM 2.6 mg/dL (1.8-2.4); TOT PROT 7.2 g/dl (6.4-8.2)
[2021-04-06 07:57] LABS: CREATININE 0.7 mg/dL (0.55-1.3)
[2021-04-06 07:58] LABS: PHOSPHOROUS 3.3 mg/dL (2.5-4.9)
[2021-04-06] MEDS ORDERED: cefTRIAXone SODIUM 1 GM VIAL ONE (08:45)
[2021-04-06] MEDS ORDERED: DEXTROSE 5%-WATER - 50 ML IVPB ONE (08:45)
[2021-04-06] MEDS: CEFTRIAXONE 1 GM in DEXTROSE 5%-WATER - 50 ML IVPB SCH (09:37)
[2021-04-06] MEDS: ASCORBIC ACID 500 MG TABLET (FP) PO SCH (09:38)
[2021-04-06] MEDS: ZINC SULFATE 220 MG CAPSULE (FP) PO SCH ×2 (09:38→22:04)
[2021-04-06] MEDS: ALBUTEROL SO4 HFA INHALER IH SCH ×4 (09:38→20:52)
[2021-04-06] MEDS: CHOLECALCIFEROL (VIT D3) 1,000 UNIT (25 MCG) TABLET PO SCH (09:38)
[2021-04-06] MEDS: ENOXAPARIN NA (PORCINE) 40 MG/0.4 ML DISP.SYRIN SQ SCH (09:38)
[2021-04-06] MEDS: DEXAMETHASONE SOD PHOSPHATE 10 MG/1 ML VIAL IVPUSH SCH (09:39)
[2021-04-06] MEDS: FAMOTIDINE 20 MG TABLET PO SCH (09:44)
[2021-04-06] MEDS: BUDESONIDE/FORMETEROL FUMARATE 80/4.5 mcg INHALER IH SCH ×2 (09:49→22:04)
[2021-04-06] MEDS: DEXAMETHASONE SOD PHOSPHATE 10 MG/1 ML VIAL IVPB SCH (09:58)
[2021-04-06 10:50] LABS: ANISOCYTOSIS 1+; MACROCYTOSIS 1+; PLATELET ESTIMATE NORMAL
[2021-04-07 07:48] VITALS: PULSE 61
[2021-04-07 08:06] LABS: HEMATOCRIT 33.6 % (32.4-45.2); HEMOGLOBIN 11.4 GM/dL (10.7-15.3); LYMPH % 5.9 % (8-40); MCH 32.8 pg (25.7-33.7); MEAN CELL VOLUME 96.5 fl (80-96); MONO % 6.6 % (3.8-10.2); NEUT % 87.5 % (42.8-82.8); PLATELET COUNT 247 K/MM3 (134-434); RBC 3.49 M/mm3 (3.60-5.2); WHITE BLOOD COUNT 12.7 K/mm3 (4.0-10.0)
[2021-04-07 08:15] LABS: CALCIUM 8.6 mg/dL (8.5-10.1)
[2021-04-07 08:16] LABS: ALBUMIN 3.4 g/dl (3.4-5.0); MAGNESIUM 2.7 mg/dL (1.8-2.4)
[2021-04-07 08:19] LABS: CREATININE 0.7 mg/dL (0.55-1.3); PHOSPHOROUS 3.4 mg/dL (2.5-4.9)
[2021-04-07 08:20] LABS: BILIRUBIN,TOTAL 0.6 mg/dL (0.2-1); TOT PROT 7.2 g/dl (6.4-8.2)
[2021-04-07] MEDS ORDERED: cefTRIAXone SODIUM 1 GM VIAL ONE (08:32)
[2021-04-07] MEDS ORDERED: DEXTROSE 5%-WATER - 50 ML IVPB ONE (08:33)
[2021-04-07 08:53] VITALS: BP 99/65; TEMP 97.8
[2021-04-07] MEDS: BUDESONIDE/FORMETEROL FUMARATE 80/4.5 mcg INHALER IH SCH (09:02)
[2021-04-07] MEDS: ALBUTEROL SO4 HFA INHALER IH SCH (09:02)
[2021-04-07] MEDS: ENOXAPARIN NA (PORCINE) 40 MG/0.4 ML DISP.SYRIN SQ SCH (09:03)
[2021-04-07] MEDS: CEFTRIAXONE 1 GM in DEXTROSE 5%-WATER - 50 ML IVPB SCH ×2 (09:03→09:53)
[2021-04-07] MEDS: ZINC SULFATE 220 MG CAPSULE (FP) PO SCH (09:04)
[2021-04-07] MEDS: CHOLECALCIFEROL (VIT D3) 1,000 UNIT (25 MCG) TABLET PO SCH (09:04)
[2021-04-07] MEDS: FAMOTIDINE 20 MG TABLET PO SCH (09:05)
[2021-04-07] MEDS: ASCORBIC ACID 500 MG TABLET (FP) PO SCH (09:05)
[2021-04-07] MEDS: DEXAMETHASONE SOD PHOSPHATE 10 MG/1 ML VIAL IVPB SCH (09:05)
== END 2021-04-07 11:47 | disposition home or self-care (01) | DRG 137 ==
LOC: JER 18:57 → JERBED 22:09 → J7W 04-04 16:34
PROVIDERS: ADMIT Internal Medicine; ATTEND Student in an Organized Health Care Education/Training Program
DX: U07.1 COVID-19 (principal); D72.819 Decreased white blood cell count, unspecified; R74.01 Elevation of levels of liver transaminase levels; N39.0 Urinary tract infection, site not specified; J45.901 Unspecified asthma with (acute) exacerbation; R91.8 Other nonspecific abnormal finding of lung field; E87.3 Alkalosis; J96.01 Acute respiratory failure with hypoxia; E83.51 Hypocalcemia
CPT/HCPCS: 36415; 71045-TC-FY; 76700-TC; 80053; 80061; 81003; 82248; 82550; 82728; 82803; 83036; 83605; 83615; 83721; 83735; 84100; 84484; 85025; 85027; 85379; 85610; 85651; 85730; 86140; 86704; 86706; 86707; 86708; 86709; 86738; 86769; 86803; 87040; 87086; 87340; 87804; 87899; 93005; 93010; 94010; 94761; 99291; C9803; J0131; J1100; U0003; U0005